=== PATIENT | female | born 1995 ===

== ENCOUNTER 2017-01-15 09:58 | Emergency (ER) | payer BC ==
--- NOTE | 2017-01-15 11:23 | UC ---
Eye Complaint HPI - HPI Summary HPI Summary: Pt states that she woke up yesterday (01/14/17) with right eye pain, felt like something in her right eye, green drainage from right, right eye swelling, sore throat, sinus congestion and head ache. Pt states she feels tight when she breathes. Has had pink eye before and feels like that at this time. No vision changes otherwise. No fever. [ End ] - History of Current Complaint Chief Complaint: UCGeneralIllness Stated Complaint: RIGHT EYE COMPLAINT Time Seen by Provider: 01/15/17 11:15 Hx Obtained From: Patient Hx Last Menstrual Period: 01/06/17 ?: No Onset/Duration: Gradual Onset Timing: Constant Severity Initially: Moderate Severity Currently: Moderate Alleviating Factor(s): Nothing Associated Signs And Symptoms: Positive: Drainage (Purulent) - Allergies/Home Medications Allergies/Adverse Reactions: Allergies Allergy/AdvReac Type Severity Reaction Status Date / Time No Known Allergies Allergy Verified 01/15/17 11:09 Home Medications: Home Medications Amphetamine-Dextroamphetamine [Adderall 10 mg-] 1 tab PO DAILY 01/15/17 [ History Confirmed 01/15/17] Ibuprofen [Ibuprofen 200 MG] 2 tab PO Q8HR PRN 01/15/17 [History Confirmed 01/15] Lisdexamfetamine Dimesylate [Vyvanse] 1 tab PO DAILY 01/15/17 [History Confirmed 01/15/17] diPHENhydraMINE PO* [Benadryl PO 25 MG TAB*] 2 tab PO Q6HR PRN 01/15/17 [ History Confirmed 01/15/17] PMH/Surg Hx/FS Hx/Imm Hx Previously Healthy: Yes Cardiovascular History Of: Denies: Cardiac Disorders - Surgical History Surgical History: Yes Surgery Procedure, Year, and Place: Rotator Cuff Left Shoulder 07/2014 - Family History Known Family History: Positive: None - Social History Occupation: Student - [employer] Lives: With Family Alcohol Use: Daily Alcohol Amount: 1 x week Substance Use Type: None Smoking Status (MU): Never Smoked Tobacco Household Exposure Type: Cigarettes Review of Systems Constitutional: Negative Skin: Negative Eyes: Drainage - Right eye ENT: Nasal Discharge Respiratory: Negative Cardiovascular: Negative Gastrointestinal: Negative Genitourinary: Negative Motor: Negative Neurovascular: Negative Musculoskeletal: Negative Neurological: Negative Psychological: Negative All Other Systems Reviewed And Are Negative: Yes Physical Exam Triage Information Reviewed: Yes Appearance: Well-Appearing, No Pain Distress, Well-Nourished Vital Signs: Initial Vital Signs Temp 97.7 F 01/15/17 11:02 Pulse 64 01/15/17 11:02 Resp 18 01/15/17 11:02 Pulse Ox 98 01/15/17 11:02 Vital Signs Reviewed: Yes Eye Exam: Normal Eyes: Positive: Conjunctiva Inflamed - right, Discharge - purulent ENT Exam: Normal Dental Exam: Normal Neck exam: Normal Respiratory Exam: Normal Cardiovascular Exam: Normal Musculoskeletal Exam: Normal Neurological Exam: Normal Psychological Exam: Normal Skin Exam: Normal Eye Complaint Course/Dx - Differential Dx/Diagnosis Differential Diagnosis/HQI/PQRI: Conjunctivitis Provider Diagnoses: conjunctivitis - bacterial Discharge - Discharge Plan Condition: Good Disposition: HOME Prescriptions: Polymyx/Trimethoprim OPTH* [Polytrim OPHTH*] 1 drop RIGHT EYE Q3H #1 btl Patient Education Materials: Conjunctivitis (ED) Additional Instructions: Follow up with a physician if your symptoms are not improved.
== END 2017-01-15 11:48 | disposition home or self-care (01) ==
LOC: UCCORT 09:58
DX: H10.31 Unspecified acute conjunctivitis, right eye (principal); Z77.22 Contact with and (suspected) exposure to environmental tobacco smoke (acute) (chronic)
CPT/HCPCS: 99202; G0463